=== PATIENT | female | born 1940 | race Two or more races ===

== ENCOUNTER 2017-04-05 23:04 | Inpatient (IN) | payer SELFPAY ==
[~2017-04-05] VITALS: Ht 157.5 cm; Wt 53.5 kg
[2017-04-05] MEDS ORDERED: METFORMIN HCL500 M1 ORAL (23:08)
[2017-04-05] MEDS ORDERED: Solu-MEDROL 125mg Inj IVP ONE (23:15)
[2017-04-05] MEDS ORDERED: Albuterol ud Inhalation HHN ONE (23:15)
[2017-04-05] MEDS ORDERED: Ipratropium 0.02% Inh Soln 2.5ml UD HHN ONE (23:15)
[2017-04-05] MEDS ORDERED: Azithromycin 500 MG in NS 275 ML IV ONE (23:45)
[2017-04-05] MEDS ORDERED: DuoNeb 0.5-3(2.5)mg/3ml neb HHN PRN (23:45)
[2017-04-05 23:57] LABS: BASOPHILS % (AUTO) 0.7 % (0.0-2.0); EOSINOPHILS % (AUTO) 1.4 % (0.0-3.0); LYMPHOCYTES % (AUTO) 34.2 % (20.0-45.0); MEAN CORPUSCULAR HEMOGLOBIN 29.8 PG (27.0-31.0); MEAN CORPUSCULAR HGB CONC 33.4 G/DL (32.0-36.0); MEAN CORPUSCULAR VOLUME 89 FL (80-99); MEAN PLATELET VOLUME 8.3 FL (6.5-10.1); MONOCYTES % (AUTO) 8.7 % (1.0-10.0); NEUTROPHILS % (AUTO) 55.1 % (45.0-75.0); PLATELET COUNT 214 K/UL (150-450); RED BLOOD COUNT 4.67 M/UL (4.20-5.40); RED CELL DISTRIBUTION WIDTH 12.5 % (11.6-14.8); WHITE BLOOD COUNT 9.8 K/UL (4.8-10.8)
[2017-04-06] LABS: INR 0.9 (0.9-1.1); PROTHROMBIN TIME 9.6 SEC (9.30-11.50)
[2017-04-06 00:03] VITALS: BP 154/68
--- NOTE | 2017-04-06 00:09 | Emergency Room Report ---
History of Present Illness General Chief Complaint: Dyspnea/Respdistress Source: Patient, Family Member, EMS Present Illness HPI Is a 76-year-old female with a history of asthma. She also has a history of diabetes. She is visiting from [place]. She is taking Salmeterol of her asthma. She presents with shortness of breath started tonight. Wheezing. No relief with her inhaler. Per EMS she was in respiratory distress and room air pulse ox was only 86%. They put on oxygen give her a breathing treatment. She fell better now. No fever or chills. No nausea vomiting. Worse with exertion. Allergies: Coded Allergies: No Known Allergies (Unverified , 04/05/17) Patient History Past Medical History: see triage record, old chart reviewed, DM, asthma Past Surgical History: other Pertinent Family History: none Social History: Denies: smoking Last Menstrual Period: n/a Now: No Immunizations: other Reviewed Nursing Documentation: PMH: Agreed, PSxH: Agreed Nursing Documentation-PMH Hx Diabetes: Yes Review of Systems Eye: Denies: blurred vision, eye pain ENT: Denies: ear pain, nose congestion, throat swelling Respiratory: Reports: shortness of breath, wheezing, Denies: cough Cardiovascular: Denies: chest pain, palpitations Gastrointestinal: Denies: abdominal pain, diarrhea, nausea, vomiting Musculoskeletal: Denies: back pain, joint pain Skin: Denies: rash Neurological: Denies: headache, numbness Endocrine: Denies: increased thirst, increased urine Hematologic/Lymphatic: Denies: easy bruising All Other Systems: negative except mentioned in HPI Physical Exam Vital Signs Date Time Temp Pulse Resp B/P Pulse Ox O2 Delivery O2 Flow Rate FiO2 04/05/17 23:03 98.8 105 17 155/121 93 Room Air vitals with hypoxia and high blood pressure Sp02 EP Interpretation: abnormal General Appearance: moderate distress Head: normocephalic, atraumatic Eyes: bilateral eye EOMI, bilateral eye PERRL ENT: hearing grossly normal, normal pharynx Neck: full range of motion, supple, no meningismus Respiratory: chest non-tender, decreased breath sounds, accessory muscle use, wheezing Cardiovascular #1: regular rate, rhythm, no murmur Gastrointestinal: normal bowel sounds, non tender, no mass, no organomegaly, no bruit, non-distended Musculoskeletal: back normal, normal range of motion Neurologic: alert, oriented x3 Psychiatric: mood/affect normal Skin: warm/dry Procedures Critical Care Time Critical Care Time Critical care is mandated in this patient who presented with respirations chest secondary to status asthmaticus. Patient require my urgent intervention to attenuate the risks of respiratory collapse which may lead to cardiovascular collapse and . Critical care time is 35 minutes excluding any reportable procedure. Critical care time included evaluation, multiple reevaluation, looking at old charts, interpreting laboratory and diagnostic data, discussing case with patient and family and consultants, and charting. Medical Decision Making Diagnostic Impression: Primary Impression: Acute respiratory failure with hypoxia Additional Impressions: Status asthmaticus Qualified Codes: J45.52 - Severe persistent asthma with status asthmaticus CHF exacerbation Qualified Codes: I50.9 - Heart failure, unspecified ER Course Patient presents with severe asthma exacerbation. She is only on a long-acting beta agonist. She is much better now. So slight wheezing. No evidence of pneumonia, ACS, PE, dissection to name a few. When made for further treatment and IV medication. I discussed the case with Dr. Chinchilla who will admit. Laboratory Tests Test 04/05/17 23:10 White Blood Count 9.8 K/UL (4.8-10.8) Red Blood Count 4.67 M/UL (4.20-5.40) Hemoglobin 13.9 G/DL (12.0-16.0) Hematocrit 41.8 % (37.0-47.0) Mean Corpuscular Volume 89 FL (80-99) Mean Corpuscular Hemoglobin 29.8 PG (27.0-31.0) Mean Corpuscular Hemoglobin Concent 33.4 G/DL (32.0-36.0) Red Cell Distribution Width 12.5 % (11.6-14.8) Platelet Count 214 K/UL (150-450) Mean Platelet Volume 8.3 FL (6.5-10.1) Neutrophils (%) (Auto) 55.1 % (45.0-75.0) Lymphocytes (%) (Auto) 34.2 % (20.0-45.0) Monocytes (%) (Auto) 8.7 % (1.0-10.0) Eosinophils (%) (Auto) 1.4 % (0.0-3.0) Basophils (%) (Auto) 0.7 % (0.0-2.0) Prothrombin Time 9.6 SEC (9.30-11.50) Prothromb Time International Ratio 0.9 (0.9-1.1) Activated Partial Thromboplast Time 25 SEC (23-33) Sodium Level 143 mEQ/L (135-145) Potassium Level 3.6 mEQ/L (3.4-4.9) Chloride Level 102 mEQ/L (98-107) Carbon Dioxide Level 27 mEQ/L (20-30) Anion Gap 14 (5-15) Blood Urea Nitrogen 13 mg/dL (7-23) Creatinine 0.9 mg/dL (0.5-0.9) Estimat Glomerular Filtration Rate mL/min (>60) Glucose Level 276 mg/dL (74-106) H Calcium Level 10.0 mg/dL (8.6-10.2) Total Bilirubin < 0.2 mg/dL (0.0-1.2) Aspartate Amino Transf (AST/SGOT) 23 U/L (5-40) Alanine Aminotransferase (ALT/SGPT) 13 U/L (3-33) Alkaline Phosphatase 73 U/L (35-104) Total Creatine Kinase 91 U/L (26-140) Creatine Kinase MB 5.9 ng/mL (< 3.8) H Creatine Kinase MB Relative Index 6.4 Troponin I < 0.30 ng/mL (<=0.30) Pro-B-Type Natriuretic Peptide 1788 pg/mL (0-450) H Total Protein 7.3 g/dL (6.6-8.7) Albumin 4.7 g/dL (3.5-5.2) Globulin 2.6 g/dL Albumin/Globulin Ratio 1.8 (1.0-2.7) Lab Results Impression Labs with elevated BNP EKG Diagnostic Results EKG Time: 00:08 Rate: normal Rhythm: NSR ST Segments: other - Left bundle branch block Rhythm Strip Diag. Results Rhythm Strip Time: 00:08 EP Interpretation: yes Rate: 89 Rhythm: NSR, no PVC's, no ectopy Chest X-Ray Diagnostic Results Chest X-Ray Diagnostic Results : Chest X-Ray Ordered: Yes # of Views/Limited/Complete: 1 View Indication: Shortness of Breath EP Interpretation: Yes Interpretation: no consolidation, no effusion, no pneumothorax, no acute cardiopulmonary disease Impression: No acute disease Interpreting ER Provider: Electronically signed by Tacho López MD Last Vital Signs Date Time Temp Pulse Resp B/P Pulse Ox O2 Delivery O2 Flow Rate FiO2 04/05/17 23:03 98.8 105 17 155/121 93 Room Air Status: improved Disposition: ADMITTED INPATIENT Condition: Serious Referrals: NOT CHOSEN KAREN/,REFERRING (PCP) TACHO LÓPEZ M.D. Apr 06, 2017 00:09
[2017-04-06] MEDS ORDERED: Albuterol ud Inhalation HHN ONE (00:15)
[2017-04-06 00:21] LABS: ALANINE AMINOTRANSFERASE 13 U/L (3-33); ALBUMIN/GLOBULIN RATIO 1.8 (1.0-2.7); ANION GAP 14 (5-15); ASPARTATE AMINO TRANSFERASE 23 U/L (5-40); CARBON DIOXIDE 27 mEQ/L (20-30); CHLORIDE 102 mEQ/L (98-107); CREATININE 0.9 mg/dL (0.5-0.9); HEMOLYSIS 10; POTASSIUM 3.6 mEQ/L (3.4-4.9); SODIUM 143 mEQ/L (135-145); TOTAL PROTEIN 7.3 g/dL (6.6-8.7)
[2017-04-06 00:25] LABS: TROPONIN I < 0.30 ng/mL (<=0.30)
[2017-04-06 00:33] LABS: CKMB 5.9 ng/mL (< 3.8)
[2017-04-06 01:40] VITALS: BP 155/68
[2017-04-06] MEDS ORDERED: METFORMIN HCL850 M1 ORAL (02:46)
[2017-04-06] MEDS ORDERED: ADALAT10 MG ORAL (02:46)
[2017-04-06] MEDS ORDERED: Azithromycin 500mg Inj IV ONE (02:56)
[2017-04-06] MEDS: DuoNeb 0.5-3(2.5)mg/3ml neb HHN SCH ×3 (03:27→11:53)
[2017-04-06] MEDS ORDERED: cefTRIAXone 1 GM in NS 55 ML IVPB SCH (04:00)
[2017-04-06 04:25] VITALS: BP 156/84
[2017-04-06] MEDS ORDERED: Solu-MEDROL 40mg Inj IVP SCH (06:00)
[2017-04-06] MEDS: NovoLOG Insulin Flexpen SUBQ SCH ×2 (06:28→11:40)
[2017-04-06 08:00] VITALS: BP 128/63
[2017-04-06] MEDS ORDERED: Heparin 5000 units/ml inj SUBQ SCH (09:00)
--- NOTE | 2017-04-06 09:01 | Diagnostic Imaging Report ---
Indication: SOB. Technique: XRAY CHEST 1 V. Comparison: None Findings: The heart is normal in size. There is some minimal interstitial disease in the bases. The lungs are otherwise clear. No pleural fluid. There is atherosclerotic change of the aorta. The bones are unremarkable. Impression: Atherosclerotic change. Basilar interstitial disease. Otherwise negative.
[2017-04-06] MEDS ORDERED: NIFEdipine 10mg cap ORAL SCH (09:30)
[2017-04-06] MEDS ORDERED: QVAR7.3 G2 IH (11:51)
[2017-04-06] MEDS ORDERED: PROAIR HFA8.5 GM INH (11:51)
[2017-04-06 12:00] VITALS: BP 135/69
[2017-04-06] MEDS ORDERED: Insulin NPH SUBQ ONE (13:00)
[2017-04-06] MEDS ORDERED: NS 275ml ONE (14:08)
[2017-04-06] MEDS ORDERED: Tubing IV Secondary IV ONE (14:08)
--- NOTE | 2017-04-06 15:45 | History and Physical Report ---
DATE OF ADMISSION: 04/06/2017 CHIEF COMPLAINT AND REASON FOR HOSPITALIZATION: The patient admitted with asthma. HISTORY OF PRESENT ILLNESS: The patient has a history of asthma, presented with shortness of breath. She uses inhalers at home intermittently. Chest x-ray showed bibasilar interstitial disease, but no definite infiltrate. She was given steroids and nebulizer treatments, already feeling better by the time I arrived. ALLERGIES: None known. MEDICATIONS: At home include albuterol inhaler, nifedipine, and metformin. PAST SURGICAL HISTORY: Gallbladder about 6 years ago. HABITS: She is a nondrinker and nonsmoker. No use of illicit drugs. SOCIAL HISTORY: Lives with family. SYSTEM REVIEW: HEAD EYES, EARS, NOSE, AND THROAT: Vision and hearing is good. ENDOCRINE: History of diabetes. No known thyroid disease. PULMONARY: History of asthma, long-standing. No history of recurrent stress. CARDIAC: No angina, GA, or CHF. GASTROINTESTINAL: No gastrointestinal bleeding or ulcers. GENITOURINARY: No dysuria or hematuria. MUSCULOSKELETAL: No severe arthritis. NEUROLOGIC: No CVA or seizures. PHYSICAL EXAMINATION: GENERAL: The patient is alert, elderly lady, in no acute distress. VITAL SIGNS: Temperature is 96.8 degrees, pulse 104, respirations 20, and blood pressure 128/63. HEAD EYES EARS, NOSE, AND THROAT: Sclerae are nonicteric. Ocular motions intact in all directions. Oral mucosa is moist. NECK: No adenopathy. LUNGS: Clear. No distress. HEART: Regular rhythm. No murmur. ABDOMEN: Soft without organomegaly or masses. EXTREMITIES: No edema, cyanosis, or clubbing. NEUROLOGIC: She is alert and oriented. Cranial nerves are intact. PERTINENT LABORATORY AND DIAGNOSTIC DATA: White count 9.8 and hemoglobin 13.9. Chemistries within normal. Glucose is 276 in the emergency room. BNP is 1788. Troponin less than 0.30. Chest x-ray as above. IMPRESSION: 1. Asthma exacerbation, already improved with steroids and nebulizer. 2. Adult-onset diabetes. PLAN: The patient was given instructions. Discharge per . Quang Chinchilla M.D. DR: TONNY JOB#: [id number] CC:
--- NOTE | 2017-04-06 16:19 | Cardiology Report ---
APPROVED REPORT EKG Measurement Heart [id number] Normal sinus rhythm Left bundle branch block Abnormal ECG
--- NOTE | 2017-04-07 01:15 | Discharge Summary ---
DATE OF ADMISSION: 04/06/2017 DATE OF DISCHARGE: 04/06/2017 PERTINENT HISTORY: The patient presented with asthma and weakness to the emergency room. Doctor felt that she needed admission for exacerbation of asthma. PERTINENT PHYSICAL FINDINGS: See my dictated History and Physical. At the time of my exam, her lungs are clear. Heart, regular rhythm. She was in no acute distress. COURSE IN THE HOSPITAL: The patient received steroids and sliding scale insulin coverage. Her symptoms improved and it was felt that she was safe to go home on low-dose steroids and inhalers and should follow up in the office of her primary physician. Quang Chinchilla M.D. DR: BARBARA JOB#: [id number] CC:
== END 2017-04-06 14:09 | disposition home or self-care (01) | DRG 203 ==
LOC: EDBD 23:04 → EMR 23:15 → 2E 04-06 01:25 → EDBEDREQ 04-06 01:30
DX: J45.901 Unspecified asthma with (acute) exacerbation (principal); E11.9 Type 2 diabetes mellitus without complications; Z90.49 Acquired absence of other specified parts of digestive tract
CPT/HCPCS: 36415; 71010; 80053; 82550; 82553; 82962; 83880; 84484; 85025; 85610; 85730; 93005; 94640; 94664; J1815; J7620